=== PATIENT | male | born 1955 | race Caucasian/White ===

== ENCOUNTER 2017-10-01 10:29 | Emergency (ER) | payer BC ==
[2017-10-01] MEDS ORDERED: MORPHINE 4 MG/ML SYR ONE (10:54)
[2017-10-01] MEDS ORDERED: ONDANSETRON 4 MG/2 ML VIAL ONE (10:54)
[2017-10-01] MEDS ORDERED: MEPERIDINE HCL 25 MG/0.5 ML ONE (11:16)
[2017-10-01] MEDS ORDERED: PROMETHAZINE 25 MG/ML VIAL ONE (11:16)
[2017-10-01] MEDS ORDERED: KETOROLAC 30 MG/ML INJ ONE (11:16)
[2017-10-01 11:49] LABS: Absolute Monocytes 0.9 K/uL (0.1-1.3); Absolute Neutrophil 12.6 K/uL (1.8-8.0); Basophils % 0.2 % (0-1.3); Eosinophils % 0.3 % (0-4.4); Hematocrit 45.5 % (39.6-49.0); Lymphocytes % 6.7 % (15.3-44.8); MCH 29.9 pg (27.0-35.0); MPV 7.2 fL (7.6-11.3); Monocytes % 6.2 % (3.3-12.3); RBC Red Blood Cell Count 5.12 M/uL (4.33-5.43)
--- NOTE | 2017-10-01 12:13 | RAD REPORT ---
EXAM DESCRIPTION: CT - Stone Protocol - 10/01/2017 11:48 am CLINICAL HISTORY: Abdominal pain, left flank pain, lithotripsy several days earlier there COMPARISON: None. TECHNIQUE: Axial 5 mm thick images were obtained without oral or IV contrast. The jehey-hm-xlrj span s the entirety of the system partially obscuring uppermost abdomen and lung bases. All CT scans are performed using dose optimization technique as appropriate and may include automated exposure control or mA/KV adjustment according to patient size. FINDINGS: Ivzw-ek-fhyzgted left-sided hydronephrosis is present secondary to a 6 x 4 mm stone in the proximal left ureter. On a KUB projection, the stone is superimposed on the lateral margin of the L2 -3 disc space. No other ureteral calculi present. Ureter is normal size distal to this stone. Patient has numerous variably sized nonobstructing caliceal calculi present from 3 mm-9 mm in size. Mild iram ma and perinephric stranding of the left kidney noted. No right-sided hydronephrosis or obstructing c alculi. No nonobstructing calculi on the right. No bladder calculi. Prostate gland and seminal vesicl es are normal range. No urinary bladder suspicious finding. Isodense masses and pyelonephritis are no t excluded on stone protocol study. Liver, spleen and pancreas show no focal abnormalities. The liver demonstrates diffuse fatty infiltra tion. No gallbladder or biliary tree abnormality identified. No significant adrenal finding. Disc and bony degenerative changes are present. No acute bone process. No hernia, mass or bulky lymphadenopathy noted. No free air, free fluid or inflammatory stranding. IMPRESSION: Mild to moderate hydronephrosis secondary to a 6 x 4 mm stone in the proximal ureter. Dany rhodes has multiple 3-9 mm nonobstructing caliceal calculi on the left. The obstructing ureteral calculus, on KUB projection, superimposes on the left lateral margin of the L2-3 disc space. Diffuse fatty infiltration of the liver. Isodense masses and pyelonephritis are not excluded on stone protocol technique.
[2017-10-01] MEDS ORDERED: TAMSULOSIN 0.4 MG SR CAP ONE (12:15)
[2017-10-01] MEDS ORDERED: CEFTRIAXONE/SWI 1gm 1 GM/10 ML SYR ONE (12:16)
[2017-10-01 12:17] LABS: Albumin 4.3 g/dL (3.4-5.0); Bilirubin Direct 0.1 mg/dL (0-0.2); Bilirubin Total 0.6 mg/dL (0.2-1.0); Potassium 3.9 mmol/L (3.5-5.1)
[2017-10-01 12:55] LABS: Blood Morphology Comment NOT SEEN (NOT SEEN); Platelet Estimate ADEQ; Urine White Blood Cell Casts OK
--- NOTE | 2017-10-01 13:02 | ER ---
Nurse's Notes [facility] Name: Lobo Mayers Age: 62 yrs Sex: Male : 1955 Arrival Date: 10/01/2017 Time: 10:30 Bed 3 Private MD: Out, [facility] Diagnosis: Ureterolithiasis Presentation: 10/01 10:36 Presenting complaint: Patient states: Lithotripsy performed on Thursday, reports passing sg small stones with no problems but now im having a really bad pain on the left side flank area, Dr. Xochitl Murillo in [place] for my urology needs, reports nausea and vomiting denies fever. Transition of care: patient was not received from another setting of care. Onset of symptoms was October 01, 2017. Risk Assessment: Do you want to hurt yourself or someone else? Patient reports no desire to harm self or others. Initial Sepsis Screen: Does the patient meet any 2 criteria? No. Patient's initial sepsis screen is negative. Does the patient have a suspected source of infection? No. Patient's initial sepsis screen is negative. Care prior to arrival: None. 10:36 Method Of Arrival: Ambulatory sg 10:36 Acuity: [place] 3 sg Historical: - Allergies: 10:36 No Known Allergies; sg - Immunization history:: Adult Immunizations up to date. - Social history:: Smoking status: Patient/guardian denies using tobacco. - Ebola Screening: : Patient negative for fever greater than or equal to 101.5 degrees Fahrenheit, and additional compatible Ebola Virus Disease symptoms Patient denies exposure to infectious person Patient denies travel to an Ebola-affected area in the 21 days before illness onset No symptoms or risks identified at this time. Screenin:59 Abuse screen: Denies threats or abuse. Denies injuries from another. Nutritional sv screening: No deficits noted. Tuberculosis screening: No symptoms or risk factors identified. Fall Risk None identified. Assessment: 10:45 General: Appears distressed, uncomfortable, Behavior is cooperative, appropriate for sv age, restless. Pain: Complains of pain in left low back and left mid back Pain currently is 10 out of 10 on a pain scale. Pain began this morning Is continuous. Neuro: Level of Consciousness is awake, alert, obeys commands, Oriented to person, place, time, situation, Moves all extremities. Full function Gait is steady, Speech is normal. Respiratory: Respiratory effort is even, unlabored, Respiratory pattern is regular, symmetrical. GI: Abdomen is round. Derm: Skin is diaphoretic, Skin is normal. Musculoskeletal: No signs and/or symptoms reported regarding the musculoskeletal system. 11:10 Reassessment: No changes from previously documented assessment. Patient and/or family sv updated on plan of care and expected duration. Pain level reassessed. Patient is alert, oriented x 3, equal unlabored respirations, skin warm/dry/pink. 11:57 Reassessment: Patient appears in no apparent distress at this time. Patient and/or sv family updated on plan of care and expected duration. Pain level reassessed. Patient is alert, oriented x 3, equal unlabored respirations, skin warm/dry/pink. Pain: Complains of pain in left mid back and left low back Pain currently is 3 out of 10 on a pain scale. 13:42 Reassessment: Patient appears in no apparent distress at this time. Patient and/or sv family updated on plan of care and expected duration. Pain level reassessed. Patient is alert, oriented x 3, equal unlabored respirations, skin warm/dry/pink. Patient denies pain at this time. Patient states feeling better. Patient states symptoms have improved. Vital Signs: 10:38 Pulse 76; Resp 17; Temp 98.6; Pulse Ox 100% on R/A; Weight 113.4 kg; Pain 10/10; sg 10:46 BP 161 / 103; sv 11:10 Pain 8/10; sv 11:10 Pain 8/10; sv 11:31 Pain 4/10; sv 11:31 Pain 4/10; sv 11:43 Pulse 79; Resp 16; Pulse Ox 91% on R/A; sv 11:57 BP 152 / 73; Pulse 55; Resp 18; Pulse Ox 100% on 2 lpm NC; Pain 3/10; sv 13:43 BP 150 / 66; Pulse 58; Resp 18; Pulse Ox 99% ; sv 11:43 Pt placed on O2 \T\ 2L per NC. O2 sat up to 96% sv ED Course: 10:30 Patient arrived in ED. sb2 10:30 Out, [facility] is Private Physician. sb2 10:37 Triage completed. sg 10:43 Des Santiago PA is PHCP. jr8 10:43 Shakeel Harmon MD is Attending Physician. jr8 10:45 Inserted saline lock: 20 gauge in left antecubital area, using aseptic technique. sv ,using aseptic technique. done by Eduardo Tenorio RN. 10:47 Sunitha Castillo, SYO is Primary Nurse. sv 10:50 Patient has correct armband on for positive identification. Bed in low position. Adult sv w/ patient. NIBP on. 10:50 Initial lab(s) drawn, by me, sent to lab. sv 10:58 Arm band placed on right wrist. sv 11:[address] via wheelchair. vr 11:27 Note: patient not ready at this time, in pain. vr 11:[address] via stretcher. sv 11:48 CT Stone Protocol In Process Unspecified. EDMS 11:[address] Patient moved back from [address]. sv 13:43 No provider procedures requiring assistance completed. IV discontinued, intact, sv bleeding controlled, No redness/swelling at site. Pressure dressing applied. Administered Medications: 10:55 Drug: Zofran 4 mg Route: IVP; Site: left antecubital; sv 11:10 Follow up: Pain 8/10 Adult; Response: No adverse reaction sv 10:57 Drug: morphine 4 mg Route: IVP; Site: left antecubital; sv 11:10 Follow up: Pain 8/10 Adult; Response: No adverse reaction sv 11:15 Drug: Phenergan 12.5 mg Route: IVP; Site: left antecubital; sv 11:31 Follow up: Response: No adverse reaction; Marked relief of symptoms; Nausea is decreasedsv 11:17 Drug: Demerol 25 mg Route: IVP; Site: left antecubital; sv 11:31 Follow up: Pain 4/10 Adult; Response: No adverse reaction sv 11:19 Drug: TORadol 30 mg Route: IVP; Site: left antecubital; sv 11:31 Follow up: Pain 4/10 Adult; Response: No adverse reaction; Marked relief of symptoms sv 12:20 Drug: Flomax 0.4 mg Route: PO; sv 13:42 Follow up: Response: No adverse reaction sv 12:20 Drug: Rocephin 1 grams Route: IV; Rate: calculated rate; Site: left antecubital; sv Outcome: 13:02 Discharge ordered by . jr8 13:43 Discharged to home ambulatory, with family. sv 13:43 Condition: stable 13:43 Discharge instructions given to patient, Instructed on discharge instructions, follow up and referral plans. no drinking with medication, no driving heavy equipment, medication usage, Demonstrated understanding of instructions, follow-up care, medications, Prescriptions given X 4. 13:44 Patient left the ED. sv Signatures: Dispatcher [employer] EDSunitha Bishop RN RN sv Gay, Steven, RN RN sg Davis, Victoria vr Roszak, Josh, PA PA 8 Jacqui Rodas sb2
--- NOTE | 2017-10-01 13:02 | EDPHYS ---
Physician Documentation [facility] Name: Lobo Mayers Age: 62 yrs Sex: Male : 1955 Arrival Date: 10/01/2017 Time: 10:30 Bed 3 Private MD: Out, [facility] ED Physician Shakeel Harmon HPI: 10/01 11:05 This 62 yrs old Male presents to ER via Ambulatory with complaints of jr8 Possible Kidney Stone. 11:05 The patient complains of pain in the left flank. The pain does not radiate. Onset: The jr8 symptoms/episode began/occurred acutely, today. Modifying factors: The symptoms are alleviated by nothing. the symptoms are aggravated by nothing. Associated signs and symptoms: Pertinent positives: nausea, vomiting. Severity of pain: At its worst the pain was moderate in the emergency department the pain is unchanged. The patient has experienced similar episodes in the past, a few times. The patient has been recently seen by a physician:. Patient stated that he had lithotripsy this past Thursday for renal stone. Stated that he had felt well until today. Started to have severe left sided pain and n/v . Historical: - Allergies: 10:36 No Known Allergies; sg - Immunization history:: Adult Immunizations up to date. - Social history:: Smoking status: Patient/guardian denies using tobacco. - Ebola Screening: : Patient negative for fever greater than or equal to 101.5 degrees Fahrenheit, and additional compatible Ebola Virus Disease symptoms Patient denies exposure to infectious person Patient denies travel to an Ebola-affected area in the 21 days before illness onset No symptoms or risks identified at this time. ROS: 11:05 Eyes: Negative for injury, pain, redness, and discharge, ENT: Negative for injury, jr8 pain, and discharge, Neck: Negative for injury, pain, and swelling, Cardiovascular: Negative for chest pain, palpitations, and edema, Respiratory: Negative for shortness of breath, cough, wheezing, and pleuritic chest pain, MS/Extremity: Negative for injury and deformity, Skin: Negative for injury, rash, and discoloration, Neuro: Negative for headache, weakness, numbness, tingling, and seizure. 11:05 Abdomen/GI: Positive for nausea and vomiting, Negative for abdominal pain, diarrhea, constipation, abdominal cramps, abdominal distension, anorexia, dysphagia, hematemesis, black/tarry stool, rectal pain, rectal bleeding, bowel incontinence, flatulence. 11:05 Back: Positive for flank pain, on the left. Exam: 11:05 Eyes: Pupils equal round and reactive to light, extra-ocular motions intact. Lids and jr8 lashes normal. Conjunctiva and sclera are non-icteric and not injected. Cornea within normal limits. Periorbital areas with no swelling, redness, or edema. ENT: Nares patent. No nasal discharge, no septal abnormalities noted. Tympanic membranes are normal and external auditory canals are clear. Oropharynx with no redness, swelling, or masses, exudates, or evidence of obstruction, uvula midline. Mucous membranes moist. Neck: Trachea midline, no thyromegaly or masses palpated, and no cervical lymphadenopathy. Supple, full range of motion without nuchal rigidity, or vertebral point tenderness. No Meningismus. Cardiovascular: Regular rate and rhythm with a normal S1 and S2. No gallops, murmurs, or rubs. Normal PMI, no JVD. No pulse deficits. Respiratory: Lungs have equal breath sounds bilaterally, clear to auscultation and percussion. No rales, rhonchi or wheezes noted. No increased work of breathing, no retractions or nasal flaring. Abdomen/GI: Soft, non-tender, with normal bowel sounds. No distension or tympany. No guarding or rebound. No evidence of tenderness throughout. Back: No spinal tenderness. No costovertebral tenderness. Full range of motion. Skin: Warm, dry with normal turgor. Normal color with no rashes, no lesions, and no evidence of cellulitis. MS/ Extremity: Pulses equal, no cyanosis. Neurovascular intact. Full, normal range of motion. Neuro: Awake and alert, GCS 15, oriented to person, place, time, and situation. Cranial nerves II-XII grossly intact. Motor strength 5/5 in all extremities. Sensory grossly intact. Cerebellar exam normal. Normal gait. Vital Signs: 10:38 Pulse 76; Resp 17; Temp 98.6; Pulse Ox 100% on R/A; Weight 113.4 kg; Pain 10/10; sg 10:46 BP 161 / 103; sv 11:10 Pain 8/10; sv 11:10 Pain 8/10; sv 11:31 Pain 4/10; sv 11:31 Pain 4/10; sv 11:43 Pulse 79; Resp 16; Pulse Ox 91% on R/A; sv 11:57 BP 152 / 73; Pulse 55; Resp 18; Pulse Ox 100% on 2 lpm NC; Pain 3/10; sv 13:43 BP 150 / 66; Pulse 58; Resp 18; Pulse Ox 99% ; sv 11:43 Pt placed on O2 \T\ 2L per NC. O2 sat up to 96% sv MDM: 10:44 Patient medically screened. jr8 12:56 Data reviewed: vital signs, nurses notes, lab test result(s), radiologic studies, CT jr8 scan, and as a result, I will discharge patient. Data interpreted: Pulse oximetry: on room air is 100 %. Interpretation: normal. Counseling: I had a detailed discussion with the patient and/or guardian regarding: the historical points, exam findings, and any diagnostic results supporting the discharge/admit diagnosis, lab results, radiology results, the need for outpatient follow up, a urologist, to return to the emergency department if symptoms worsen or persist or if there are any questions or concerns that arise at home. ED course: Patient still with minimal to no pain after being here for over 2 hours. Was able to urinate. Tolerates PO fluids. Will try out patient therapy for renal stone. If he were to worsen to come back for transfer to his urologist . 10/01 10:52 Order name: Basic Metabolic Panel; Complete Time: 12:20 [facility] 10/01 10:52 Order name: CBC with Diff; Complete Time: 12:58 [facility] 10/01 10:52 Order name: Creatinine for Radiology; Complete Time: 12: 8 10/01 10:52 Order name: Hepatic Function; Complete Time: 12:20 8 10/01 10:52 Order name: Lipase; Complete Time: 12:20 [facility] 10/01 11:53 Order name: CBC Smear Scan; Complete Time: 12:58 [facility] 10/01 11:02 Order name: CT Stone Protocol; Complete Time: 12:16 10/01 10:52 Order name: IV Saline Lock; Complete Time: 10:57 8 10/01 10:52 Order name: Labs collected and sent; Complete Time: 10:58 [facility] 10/01 10:52 Order name: Urine Dipstick-Ancillary (obtain specimen); Complete Time: 13:42 jr8 Administered Medications: 10:55 Drug: Zofran 4 mg Route: IVP; Site: left antecubital; sv 11:10 Follow up: Pain 8/10 Adult; Response: No adverse reaction sv 10:57 Drug: morphine 4 mg Route: IVP; Site: left antecubital; sv 11:10 Follow up: Pain 8/10 Adult; Response: No adverse reaction sv 11:15 Drug: Phenergan 12.5 mg Route: IVP; Site: left antecubital; sv 11:31 Follow up: Response: No adverse reaction; Marked relief of symptoms; Nausea is decreasedsv 11:17 Drug: Demerol 25 mg Route: IVP; Site: left antecubital; sv 11:31 Follow up: Pain 4/10 Adult; Response: No adverse reaction sv 11:19 Drug: TORadol 30 mg Route: IVP; Site: left antecubital; sv 11:31 Follow up: Pain 4/10 Adult; Response: No adverse reaction; Marked relief of symptoms sv 12:20 Drug: Flomax 0.4 mg Route: PO; sv 13:42 Follow up: Response: No adverse reaction sv 12:20 Drug: Rocephin 1 grams Route: IV; Rate: calculated rate; Site: left antecubital; sv Disposition: 15:05 Co-signature as Attending Physician, Shakeel Harmon MD. rn Disposition: 10/01/17 13:02 Discharged to Home. Impression: Ureterolithiasis . - Condition is Stable. - Discharge Instructions: Kidney Stones. - Prescriptions for ondansetron 4 mg Oral tablet,disintegrating - take 1 tablet by ORAL route every 8 hours As needed; 12 tablet. Tylenol- Codeine #3 300-30 mg Oral Tablet - take 2 tablet by ORAL route every 6 hours As needed; 30 tablet. Flomax 0.4 mg Oral Capsule, Sust. Release 24 hr - take 1 capsule by ORAL route once daily 1/2 hour following the same meal each day; 30 capsule. Cipro 500 mg Oral Tablet - take 1 tablet by ORAL route every 12 hours for 10 days; 20 tablet. - Medication Reconciliation Form, Thank You Letter, Antibiotic Education, Prescription Opioid Use form. - Follow up: Private Physician; When: 2 - 3 days; Reason: Recheck today's complaints, Continuance of care, Re-evaluation by your physician. - Problem is new. - Symptoms have improved. Signatures: Dispatcher [employer] EDSunitha Bishop RN RN sv Gay, Steven, RN RN sg Nieto, Roman, MD MD rn Roszak, Josh, PA PA jr8 Corrections: (The following items were deleted from the chart) 13:44 13:02 10/01/2017 13:02 Discharged to Home. Impression: Ureterolithiasis . Condition is sv Stable. Forms are Medication Reconciliation Form, Thank You Letter, Antibiotic Education, Prescription Opioid Use. Follow up: Private Physician; When: 2 - 3 days; Reason: Recheck today's complaints, Continuance of care, Re-evaluation by your physician. Problem is new. Symptoms have improved. jr8
== END 2017-10-01 13:44 | disposition home or self-care (01) ==
LOC: ER 10:29
DX: N20.1 Calculus of ureter (principal)
CPT/HCPCS: 36415; 74176; 76377; 80048; 80076; 83690; 85025; 96374; 96375; 99284; J0696; J2175; J2405; J2550

== ENCOUNTER 2019-11-16 10:20 | Emergency (ER) | payer BC, OTHER ==
--- OUTSIDE RECORDS SUMMARY | 2019-11-16 10:23 | XMS REPORT | Continuity of Care Document ---
:1955 Author Organization [facility] Address [address] [place] [address] [address] [place] [address] Care Team Providers Name Role Phone Asked, Pcp Primary Care Physician Unavailable [place] MD. Attending Clinician Destinee Puente MA Attending Clinician Unavailable Payers Payer Name Policy Type Policy Number Effective Date Expiration Date S aprilce AETNAAETNA PPO xxxxxxxxxx 2019 [place] OPEN 00:00:00 Yarsani CHOICExxxxxxxxxx 2019-Present PPO Problems This patient has no known problems. Allergies, Adverse Reactions, Alerts This patient has no known allergies or adverse reactions. Family History Family Member Diagnosis Comments Start Date Stop Date Source Natural father Pancreatic cancer Elizabeth baptiste Yarsani Social History Social Habit Start Date Stop Date Quantity Comments Source Sex Assigned At [facility] ethodist Exposure to Not sure [place] [facility] dist SARS-CoV-2 (event) Alcohol intake 2019-11-15 2019-11-15 Current drinker [place] Yarsani 00:00:00 00:00:00 of alcohol (finding) Alcohol Comment 2019-11-14 2019-11-14 rare [facility] ethodist 00:00:00 00:00:00 Smoking Status Start Date Stop Date Source Never smoker [place] Method[facility] t Medications Ordered Filled Start Stop Current Ordering Indication Dosage Frequency Signature Comments Components Source Medication Medication Date Date Medication? Clinician (SIG) Name Name aspirin 325 2020-0 Yes Q24H daily. [place] tablet 8-17 [facility] 10:47: st 43 citalopram 2020-0 Yes Q24H daily. [place] (CeleXA) 20 8-17 [facility] MG tablet 10:47: st 43 ezetimibe 2020-0 Yes ezetimibe Elizabeth ston (ZETIA) 10 8-17 10 mg [facility] mg tablet 10:47: tablet st 43 sodium,pota 2020- No Pre-op 1{bottl Take 1 [place] ssium,mag 8-10-30 testing e} Bottle by M ethodi sulfates 00:00: 23:[address] (Suprep 00 :00 for 1 Bowel Prep dose. Kit) 17.5-3.13-1 .6 gram recon soln sodium,pota 2020- No 1{bottl Take 1 [place] ssium,mag 8- 08-03 e} Bottle by Meth bethanie sulfates 00:00: 23:[address] (Suprep 00 :00 for 1 Bowel Prep dose. Kit) 17.5-3.13-1 .6 gram recon soln rosuvastati Yes TK 1 T PO [place] (CRESTOR) 7-07 QHS UTD Metho di 5 mg tablet 00:00: st 00 Procedures Procedure Date / Time Performed Performing Clinician [facility] e SURGICAL PATHOLOGY 2019-11-14 12:17:00 Nicholas Pond REQUEST COVID-19 QUALITATIVE PCR 2019-11-09 13:47:00 Nicholas Pond Plan of Care Planned Activity Planned Date Details Comments Source Future Scheduled 2019-11-29 INFLUENZA VACCINE [place] [facility] Test 00:00:00 [code = INFLUENZA VACCINE] Future Scheduled 2006 COLONOSCOPY SCREENING Gary berrios Yarsani Test 00:00:00 [code = COLONOSCOPY SCREENING] Future Scheduled 2006 SHINGLES VACCINES [place] Yarsani Test 00:00:00 (#1) [code = SHINGLES VACCINES (#1)] Encounters Start End Encounter Admission Attending Care Care Encounter Source Date/Time Date/Time Type Type Clinicians Facility Department ID 2019-11-14 2019-11-14 [facility] [id number] [address] [place] 00:00:00 00:00:00 NICHOLAS [address] 2019-11-09 2019-11-09 Out[facility] [id number] [address] [place] 00:00:00 00:00:00 NICHOLAS [address] Results Test Description Test Time Test Comments Results Result Comments Source Surgical pathology request 2019-11-15 09:08:26 Test Item Value Reference Range Interpretation Comme nts Case number (test code = [id number]) [id number] Surgical pathology report (test code = See link below for PDF Lab R eport 2252) Result status (test code = 9377874) This is Final Report for [id number] Jesnen TineoCOVID-19 qualitative [id number] 22:32:13 Test Item Value Reference Range Interpretation Comments Interpretation (test Negative results do code = 1703285) not preclude 2019-nCoV infection and should not be used as the sole basis for treatment or other patient management decisions. Negative results must be combined with clinical observations, patient history, and epidemiological information. COVID-19 qualitative Not-Detected Not-Detected PCR result (test code = 76263-8) COVID-19 qualitative See link below for C ase Number: PCR (test code = PDF Lab Report [id number]) Jensen Tineo
--- OUTSIDE RECORDS SUMMARY | 2019-11-16 10:23 | XMS REPORT | Clinical Summary ---
:1955 Author Organization [facility] Address [address] [place] [id number] Care Team Providers Name Role Phone Asked, No Pcp Primary Care Provider Unavailable Allergies No Known Allergies Medications Medication Sig Dispensed Refills Start Date End Date Status aspirin 325 MG daily. 0 Activ e tablet citalopram (CeleXA) daily. 0 Active 20 MG tablet ezetimibe (ZETIA) 10 ezetimibe 10 mg 0 Active mg tablet tablet rosuvastatin TK 1 T PO QHS UTD 0 10/04/2019 Active (CRESTOR) 5 mg tablet sodium,potassium,mag Take 1 Bottle by 1 Bottle 0 10/31/2019 0 10/31/2019 sulfates (Suprep mouth once for 1 Bowel Prep Kit) dose. 17.5-3.13-1.6 gram recon solnIndications: Pre-op testing sodium,potassium,mag Take 1 Bottle by 1 Bottle 0 10/31/2019 0 10/31/2019 sulfates (Suprep mouth once for 1 Bowel Prep Kit) dose. 17.5-3.13-1.6 gram recon soln Active Problems Not on file Encounters Date Type Specialty Care Team Description 11/15/2019 Telephone Gastroenterology Nicholas Pond MD 11/14/2019 Lab Lab Nicholas Pond Arrived MD 11/14/2019 Documentation Gastroenterology Nicholas Pond, Colon oscopy 11/11/2019 Telephone GastroenterAlicia Oconnell MA 11/10/2019 Telephone GastroenterNicholas Francisco MD 11/09/2019 Lab Lab Nicholas Pond, Pre-op poly ting 11/09/2019 Travel 10/31/2019 Orders Only Gastroenterology Alicia Puente MA Pre- op testing (Primary Dx) 10/31/2019 Telephone Gastroenterology Alicia Puente MA 10/31/2019 Orders Only Gastroenterology Alicia Puente MA Pre- op testing (Primary Dx) 10/05/2019 Telephone Gastroenterology Nicholas Pond MD after 11/15/2018 Family History Medical History Relation Name Comments Pancreatic cancer Father Relation Name Status Comments Father Social History Tobacco Use Types Packs/Day Years Used Date Never Smoker Smokeless Tobacco: Never Used Alcohol Use Drinks/Week oz/Week Comments Yes rare Sex Assigned at Date Recorded Not on file Job Start Date Occupation Industry Not on file Not on file Not on file Travel History Travel Start Travel End No recent travel history available. COVID-19 Exposure Response Date Recorded In the last month, have you been in contact with No / Unsure 11/09/2019 1:31 PM CDT someone who was confirmed or suspected to have Coronavirus / COVID-19? Last Filed Vital Signs Not on file Plan of Treatment Health Maintenance Due Date Last Done Comments COLONOSCOPY SCREENING 2006 SHINGLES VACCINES (#1) 2006 INFLUENZA VACCINE 11/29/2019 Procedures Procedure Name Priority Date/Time Associated Comments Diagnosis SURGICAL PATHOLOGY Routine 11/14/2019 12:17 Resul ts for this REQUEST PM CDT procedure are i n the results section. COVID-19 QUALITATIVE Routine 11/09/2019 1:47 Pre-op testing R esults for this PCR PM CDT procedure are i n the results section. after 11/15/2018 Results Surgical pathology request (11/14/2019 12:17 PM CDT) [facility] DEPARTMENT OF PATHOLOGY AND GENOMIC MEDICINE Surgical pathology See link below [facility] DEPARTMENT OF report for PDF Lab PATHOLOGY AND Report GENOMIC MEDICINE Result status This is Final [facility] DEPARTMENT OF Report for PATHOLOGY AND [id number] GENOMIC MEDICINE Specimen Performing Organization Address City/State/Zipcode Phone Number [facility] DEPARTMENT OF PATHOLOGY AND [address] [place], [place] [address] GENOMIC MEDICINE COVID-19 qualitative PCR (11/09/2019 1:47 PM CDT) Interpretation Negative results do not prec lude 2019-nCoV infection and should not be used as the sole basis for treatment or other patient management decisions. Negative results must be combined with clinical observations, patient history, and epidemiological QUIÑONEZ information. [facility] COVID-19 qualitative Not-Detected Not-Detecte [place] PCR result d [facility] COVID-19 qualitative See link below for [place] PCR PDF Lab [facility] ReportComment: Case HOSPITAL Number: [id number] Specimen Nasopharyngeal swab Performing Organization Address City/State/Zipcode Phone Number [facility] DEPARTMENT OF PATHOLOGY AND [address] [place], [place] [address] GENOMIC MEDICINE [facility] [address] [place] [address] [facility] after 11/15/2018 Advance Directives For more information, please contact: [phone] Type Date Recorded 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
[2019-11-16 11:13] LABS: Absolute Lymphocytes (CBC) 1.3 K/uL (0.7-4.9); Basophils % 0.4 % (0-1.3); Hematocrit 44.7 % (39.6-49.0); Lymphocytes % 12.8 % (15.3-44.8); MPV 6.7 fL (7.6-11.3); RBC Red Blood Cell Count 5.08 M/uL (4.33-5.43)
[2019-11-16] MEDS ORDERED: ONDANSETRON 4 MG/2 ML VIAL ONE ×2 (11:16→11:42)
[2019-11-16] MEDS ORDERED: MORPHINE 4 MG/ML SYR ONE (11:16)
[2019-11-16] MEDS ORDERED: NA CHLORIDE 0.9% 1,000 ML ONE (11:16)
[2019-11-16 11:22] LABS: Potassium 3.8 mmol/L (3.5-5.1)
[2019-11-16] MEDS ORDERED: KETOROLAC 30 MG/ML INJ ONE (11:39)
--- NOTE | 2019-11-16 12:35 | RAD REPORT ---
EXAM DESCRIPTION: CT - Stone Protocol - 11/16/2019 12:01 pm CLINICAL HISTORY: FLANK PAIN COMPARISON: Stone Protocol dated 10/01/2017 TECHNIQUE: Axial 5 mm thick images were obtained without oral or IV contrast. The [id number] span s the entirety of the system including uppermost abdomen and lung bases. All CT scans are performed using dose optimization technique as appropriate and may include automated exposure control or mA/KV adjustment according to patient size. FINDINGS: [id number] left-sided hydronephrosis present. The patient has a cluster of 3 calcifi cations near the pelvic inlet measuring 2 mm, 3 mm and 6 mm in size. On a KUB projection the calcific ations would be just inferior to the left sacral ala. Distal to the stones the ureter is decompressed . No bladder calculi present. Patient has multiple 5-7 mm nonobstructing calculi in the left kidney. No right-sided significant finding. Left-sided perinephric stranding is present. No suspicious renal masses. Isodense masses and pyelonephritis are not excluded on a stone protocol CT scan. No significa nt adrenal finding. No urinary bladder suspicious finding. Liver is fatty infiltrated. No focal liver lesion. Spleen and pancreas show no suspicious findings. N o gallbladder or biliary tree abnormality. No suspicious bowel findings. No hernia, mass or bulky lymphadenopathy noted. No free air, free fluid or inflammatory stranding. No significant bony abnormality. IMPRESSION: Okgz-co-[id number] left-sided hydronephrosis secondary to a cluster of 3 calcifications at the left pelvic inlet ranging 2-6 mm in size. When viewed from a KUB projection, the obstructing calculi should be just inferior to the left sacral ala. Additional nonobstructing left renal calculi. Fatty infiltration of the liver. Isodense masses and pyelonephritis are not excluded on stone protocol technique.
[2019-11-16 13:10] LABS: Urine Blood 2+ (NEG); Urine Glucose NEGATIVE (NEG); Urine Protein NEGATIVE (NEG); Urine pH 5.5 (5.0-7.0)
--- NOTE | 2019-11-16 13:19 | ER ---
Nurse's Notes [facility] Name: Lobo Mayers Age: 64 yrs Sex: Male : 1955 Arrival Date: 11/16/2019 Time: 10:22 Bed 6 Private MD: Diagnosis: Calculus of kidney and ureter Presentation: 11/15 10:36 Chief complaint: Patient states: left lower back and left groin started about 9 am, iw feels like a kidney stones, +hx of kid stones. Coronavirus screen: At this time, the client does not indicate any symptoms associated with coronavirus-19. Ebola Screen: Patient negative for fever greater than or equal to 101.5 degrees Fahrenheit, and additional compatible Ebola Virus Disease symptoms Patient denies exposure to infectious person. Patient denies travel to an Ebola-affected area in the 21 days before illness onset. No symptoms or risks identified at this time. Initial Sepsis Screen: Does the patient meet any 2 criteria? No. Patient's initial sepsis screen is negative. Does the patient have a suspected source of infection? No. Patient's initial sepsis screen is negative. Risk Assessment: Do you want to hurt yourself or someone else? Patient reports no desire to harm self or others. Onset of symptoms was November 16, 2019. 10:36 Method Of Arrival: Ambulatory iw 10:36 Acuity: [place] 3 iw Historical: - Allergies: 10:38 No Known Allergies; iw - Home Meds: 10:38 Crestor oral oral [Active]; citalopram oral [Active]; Zetia 10 mg Oral tab 1 tab once iw daily [Active]; hyoscyamine sulfate 0.125 mg SL subl [Active]; - PMHx: 10:38 Hyperlipidemia; Anxiety; iw - PSHx: 10:38 None; iw - Immunization history:: Adult Immunizations up to date. - Social history:: Smoking status: Patient denies any tobacco usage or history of. Screenin:00 Abuse screen: Denies threats or abuse. Denies injuries from another. Nutritional sv screening: No deficits noted. Tuberculosis screening: No symptoms or risk factors identified. Fall Risk None identified. Assessment: 10:45 General: Appears in no apparent distress. uncomfortable, Behavior is calm, cooperative. hb Pain: Pain currently is 10 out of 10 on a pain scale. Neuro: Level of Consciousness is awake, alert, obeys commands, Oriented to person, place, time, situation. Cardiovascular: Capillary refill < 3 seconds Patient's skin is warm and dry. Respiratory: Respiratory effort is even, unlabored, Respiratory pattern is regular, symmetrical. GI: Reports nausea. : Reports pain in lower back with urination, pain that radiates from low back to groin. EENT: No signs and/or symptoms were reported regarding the EENT system. Derm: Skin is pink, warm \T\ dry. Musculoskeletal: No signs and/or symptoms reported regarding the musculoskeletal system. 11:00 Reassessment: Patient appears in no apparent distress at this time. No changes from sv previously documented assessment. Patient and/or family updated on plan of care and expected duration. Pain level reassessed. Patient is alert, oriented x 3, equal unlabored respirations, skin warm/dry/pink. 11:15 Reassessment: Pt does not want to go to CT at this time because of the pain. sv 13:31 Reassessment: Bee [id number]. hb 14:00 Reassessment: Pt is alert and sitting in chair next to bed. NAD. Denies pain. VS WNL. hb Discharge pending completion of IV infusion. Vital Signs: 10:36 BP 184 / 78; Pulse 67; Resp 16; Temp 98.5; Pulse Ox 99% on R/A; Weight 108.86 kg; iw Height 5 ft. 10 in. (177.80 cm); Pain 10/10; 12:13 BP 146 / 71; Pulse 53; Resp 18; Pulse Ox 100% ; sv 10:36 Body Mass Index 34.44 (108.86 kg, 177.80 cm) iw ED Course: 10:22 Patient arrived in ED. rg4 10:37 Triage completed. iw 10:37 [facility]ad [facility] kb 10:37 Faizan Olvera MD is Attending Physician. kb 10:40 Arm band placed on. hb 10:56 Sunitha Castillo RN is Primary Nurse. sv 11:00 Inserted saline lock: 20 gauge in left antecubital area, using aseptic technique. Blood sv collected. Flushed left antecubital with 5 ml normal saline. 11:00 Patient has correct armband on for positive identification. Bed in low position. Call sv light in reach. Pulse ox on. NIBP on. 12:01 CT Stone Protocol In Process Unspecified. EDMS 14:51 No provider procedures requiring assistance completed. IV discontinued, intact, hb bleeding controlled, No redness/swelling at site. Administered Medications: 11:07 Drug: Zofran (Ondansetron) 4 mg Route: IVP; Site: left antecubital; sv 11:34 Follow up: Response: No adverse reaction; No change in condition sv 11:09 Drug: morphine 4 mg {Note: rass2.} Route: IVP; Site: left antecubital; sv 11:34 Follow up: Response: No adverse reaction; No change in condition; Pain is unchanged, sv physician notified; RASS: Agitated (+2) 11:15 Drug: NS 0.9% 1000 ml Route: IV; Rate: 1000 ml; Site: left antecubital; sv 12:00 Follow up: Response: No adverse reaction; IV Status: Completed infusion; IV Intake: sv 1000ml 11:29 Drug: TORadol 30 mg Route: IVP; Site: left antecubital; sv 12:24 Follow up: Response: No adverse reaction sv 11:34 Drug: Zofran (Ondansetron) 4 mg Route: IVP; Site: left antecubital; sv 12:24 Follow up: Response: No adverse reaction sv 13:29 Drug: Flomax 0.4 mg Route: PO; hb 14:00 Follow up: Response: No adverse reaction sv 13:29 Drug: Magnesium Sulfate 1 grams Route: IVPB; Infused Over: 1 hrs; Site: left hb antecubital; 14:30 Follow up: Response: No adverse reaction; IV Status: Completed infusion; IV Intake: sv 100ml 14:40 Drug: fentaNYL (PF) 50 mcg Route: IVP; Site: left antecubital; hb 14:51 Follow up: Response: Medication administered at discharge. hb Intake: 12:00 IV: 1000ml; Total: 1000ml. sv 14:30 IV: 100ml; Total: 1100ml. sv Output: 11:30 Urine: 1700ml (Voided); Total: 1700ml. sv Outcome: 13:18 Discharge ordered by MD. holt 14:51 Discharged to home ambulatory. hb 14:51 Condition: stable 14:51 Discharge instructions given to patient, Instructed on discharge instructions, follow up and referral plans. medication usage, Demonstrated understanding of instructions, follow-up care, medications, Prescriptions given X 4. 14:52 Patient left the ED. hb Signatures: Dispatcher [employer] EDMS Libertad Whitaker, NCA CERTIFIED CONCIERGE-C NCA CERTIFIED CONCIERGE-Sunitha Torres, RN Lora Rico RN RN iw Jaclyn Davis RN RN hb Garcia, Rubi rg4 Corrections: (The following items were deleted from the chart) 10:39 10:36 Pulse 67bpm; Resp 16bpm; Pulse Ox 99% RA; Temp 98.5F; 108.86 kg; Height 5 ft. 10 iw in.; BMI: 34.4; Pain 01/06; iw 14:52 14:51 Discharge instructions given to patient, Instructed on discharge instructions, hb follow up and referral plans. medication usage, Demonstrated understanding of instructions, follow-up care, medications, Prescriptions given X 3, hb
--- NOTE | 2019-11-16 13:19 | EDPHYS ---
Physician Documentation [facility] Name: Lobo Mayers Age: 64 yrs Sex: Male : 1955 Arrival Date: 11/16/2019 Time: 10:22 Bed 6 Private MD: ED Physician Faizan Olvera HPI: 11/15 11:09 This 64 yrs old Male presents to ER via Ambulatory with complaints of kb Possible Kidney Stone. 11:09 The patient complains of pain in the left flank. The pain radiates to the left lower kb quadrant. Onset: The symptoms/episode began/occurred this morning, at 08:00. Modifying factors: The symptoms are alleviated by nothing. the symptoms are aggravated by nothing. Associated signs and symptoms: The patient has no apparent associated signs or symptoms. Severity of pain: At its worst the pain was moderate severe in the emergency department the pain is unchanged. The patient has experienced similar episodes in the past, several times. The patient has not recently seen a physician. Historical: - Allergies: 10:38 No Known Allergies; iw - Home Meds: 10:38 Crestor oral oral [Active]; citalopram oral [Active]; Zetia 10 mg Oral tab 1 tab once iw daily [Active]; hyoscyamine sulfate 0.125 mg SL subl [Active]; - PMHx: 10:38 Hyperlipidemia; Anxiety; iw - PSHx: 10:38 None; iw - Immunization history:: Adult Immunizations up to date. - Social history:: Smoking status: Patient denies any tobacco usage or history of. ROS: 11:06 Constitutional: Negative for fever, chills, and weight loss, Cardiovascular: Negative kb for chest pain, palpitations, and edema, Respiratory: Negative for shortness of breath, cough, wheezing, and pleuritic chest pain, Abdomen/GI: Negative for abdominal pain, nausea, vomiting, diarrhea, and constipation, MS/Extremity: Negative for injury and deformity, Skin: Negative for injury, rash, and discoloration, Neuro: Negative for headache, weakness, numbness, tingling, and seizure. 11:06 Back: Positive for flank pain, on the left. Exam: 11:06 Constitutional: This is a well developed, well nourished patient who is awake, alert, kb and in no acute distress. Head/Face: Normocephalic, atraumatic. Chest/axilla: Normal chest wall appearance and motion. Nontender with no deformity. No lesions are appreciated. Cardiovascular: Regular rate and rhythm with a normal S1 and S2. No gallops, murmurs, or rubs. Normal PMI, no JVD. No pulse deficits. Respiratory: Lungs have equal breath sounds bilaterally, clear to auscultation and percussion. No rales, rhonchi or wheezes noted. No increased work of breathing, no retractions or nasal flaring. Skin: Warm, dry with normal turgor. Normal color with no rashes, no lesions, and no evidence of cellulitis. MS/ Extremity: Pulses equal, no cyanosis. Neurovascular intact. Full, normal range of motion. Neuro: Awake and alert, GCS 15, oriented to person, place, time, and situation. Cranial nerves II-XII grossly intact. Motor strength 5/5 in all extremities. Sensory grossly intact. Cerebellar exam normal. Normal gait. 11:06 Abdomen/GI: Inspection: abdomen appears normal, Bowel sounds: normal, in all quadrants, Palpation: soft, in all quadrants, moderate abdominal tenderness, in the left lower quadrant. 11:06 Back: CVA tenderness, that is mild, is noted on the left. Vital Signs: 10:36 BP 184 / 78; Pulse 67; Resp 16; Temp 98.5; Pulse Ox 99% on R/A; Weight 108.86 kg; iw Height 5 ft. 10 in. (177.80 cm); Pain 10/10; 12:13 BP 146 / 71; Pulse 53; Resp 18; Pulse Ox 100% ; sv 10:36 Body Mass Index 34.44 (108.86 kg, 177.80 cm) iw MDM: 10:39 Patient medically screened. kb 11:05 Data reviewed: vital signs, nurses notes. Data interpreted: Pulse oximetry: on room air kb is 99 %. Interpretation: normal. 12:50 Counseling: I had a detailed discussion with the patient and/or guardian regarding: the kb historical points, exam findings, and any diagnostic results supporting the discharge/admit diagnosis, lab results, radiology results, the need for outpatient follow up, a urologist, to return to the emergency department if symptoms worsen or persist or if there are any questions or concerns that arise at home. ED course: Pt reports he is pain free since the toradol. Educated on diagnostic findings. Pt will follow up outpatient with urologist.. 11/15 10:48 Order name: Basic Metabolic Panel; Complete Time: 11:27 kb 11/15 10:48 Order name: CBC with Diff; Complete Time: 11:16 kb 11/15 10:37 Order name: CT Stone Protocol; Complete Time: 12:36 kb 11/15 11:01 Order name: Urine Dipstick--Ancillary (enter results); Complete Time: 13:17 kb 11/15 10:37 Order name: Urine Dipstick-Ancillary (obtain specimen); Complete Time: 11:00 kb 11/15 10:48 Order name: IV Saline Lock; Complete Time: 11:10 kb 11/15 10:48 Order name: Labs collected and sent; Complete Time: 11:10 kb Administered Medications: 11:07 Drug: Zofran (Ondansetron) 4 mg Route: IVP; Site: left antecubital; sv 11:34 Follow up: Response: No adverse reaction; No change in condition sv 11:09 Drug: morphine 4 mg {Note: rass2.} Route: IVP; Site: left antecubital; sv 11:34 Follow up: Response: No adverse reaction; No change in condition; Pain is unchanged, sv physician notified; RASS: Agitated (+2) 11:15 Drug: NS 0.9% 1000 ml Route: IV; Rate: 1000 ml; Site: left antecubital; sv 12:00 Follow up: Response: No adverse reaction; IV Status: Completed infusion; IV Intake: sv 1000ml 11:29 Drug: TORadol 30 mg Route: IVP; Site: left antecubital; sv 12:24 Follow up: Response: No adverse reaction sv 11:34 Drug: Zofran (Ondansetron) 4 mg Route: IVP; Site: left antecubital; sv 12:24 Follow up: Response: No adverse reaction sv 13:29 Drug: Flomax 0.4 mg Route: PO; hb 14:00 Follow up: Response: No adverse reaction sv 13:29 Drug: Magnesium Sulfate 1 grams Route: IVPB; Infused Over: 1 hrs; Site: left hb antecubital; 14:30 Follow up: Response: No adverse reaction; IV Status: Completed infusion; IV Intake: sv 100ml 14:40 Drug: fentaNYL (PF) 50 mcg Route: IVP; Site: left antecubital; 14:51 Follow up: Response: Medication administered at discharge. Disposition: 11/16 09:01 Co-signature as Attending Physician, Faizan Olvera MD I agree with the assessment and kdr plan of care. Disposition: 11/16/19 13:18 Discharged to Home. Impression: Calculus of kidney and ureter. - Condition is Stable. - Discharge Instructions: Kidney Stones, [id number], Dietary Guidelines to Help Prevent Kidney Stones. - Prescriptions for Tylenol- Codeine #3 300-30 mg Oral Tablet - take 2 tablets by ORAL route every 6 hours As needed; 16 tablet. Zofran 4 mg Oral Tablet - take 1 tablet by ORAL route every 6 hours As needed; 20 tablet. Flomax 0.4 mg Oral Capsule, Sust. Release 24 hr - take 1 capsule by ORAL route once daily 1/2 hour following the same meal each day; 10 capsule. Diclofenac Sodium 75 mg Oral Tablet, Delayed Release (E.C.) - take 1 tablet by ORAL route 2 times per day As needed; 30 tablet. - Medication Reconciliation Form, Thank You Letter, Antibiotic Education, Prescription Opioid Use form. - Follow up: Emergency Department; When: As needed; Reason: Worsening of condition. Follow up: Private Physician; When: 2 - 3 days; Reason: Recheck today's complaints, Continuance of care, Re-evaluation by your physician. Signatures: Dispatcher [employer] MAHADND Libertad Whitaker, SANDRA-C PATENT SOLICITOR-Sunitha Torres RN RN sv Rittger, Kevin, MD MD [facility] Lora Recinos, SOY OLIVIER Jaclyn Davis RN RN Corrections: (The following items were deleted from the chart) 11/15 14:52 13:18 11/16/2019 13:18 Discharged to Home. Impression: Calculus of kidney and ureter. Condition is Stable. Forms are Medication Reconciliation Form, Thank You Letter, Antibiotic Education, Prescription Opioid Use. Follow up: Emergency Department; When: As needed; Reason: Worsening of condition. Follow up: Private Physician; When: 2 - 3 days; Reason: Recheck today's complaints, Continuance of care, Re-evaluation by your physician. kb
[2019-11-16] MEDS ORDERED: MAGNESIUM SULFATE 1 gm IVPB 1 GM/100 ML BAG IV ONE (13:35)
[2019-11-16] MEDS ORDERED: TAMSULOSIN 0.4 MG SR CAP ONE (13:35)
[2019-11-16] MEDS ORDERED: FENTANYL CITR 100 MCG/2 ML ONE (14:47)
[2019-11-16 15:10] VITALS: TEMP 98.5
[2019-11-16 15:11] VITALS: BP 146/71; O2SAT 100
== END 2019-11-16 14:52 | disposition home or self-care (01) ==
LOC: ER 10:20
DX: N20.2 Calculus of kidney with calculus of ureter (principal); E78.5 Hyperlipidemia, unspecified; F41.9 Anxiety disorder, unspecified
CPT/HCPCS: 96365; 96361; 85025; 80048; 36415; 81003; 76377; 74176; 96375; 99284; J3010; J3475; J7030; J2405 ×2

== ENCOUNTER 2021-11-07 03:36 | Emergency (ER) | payer OTHER ==
--- OUTSIDE RECORDS SUMMARY | 2021-11-07 03:39 | XMS REPORT | Continuity of Care Document ---
:1955 Author Organization [facility] t Address [address] [place] [address] Care Team Providers Name Role Phone ELIZABETH SAUER Attending Clinician Unavailable QUINTON ARRIAGA Attending Clinician Unavailable Jasmina Attending Clinician Unavailable Alecia Nava Attending Clinician [phone] Mario Alberto Trejo Attending Clinician Unavailable NATASHA GALICIA Attending Clinician Unavailable MD NTAASHA GALICIA Attending Clinician Unavailable ELIZABETH SAUER Admitting Clinician Unavailable Jasmina Admitting Clinician Unavailable ROSSANA RAHMAN Admitting Clinician Unavailable QUINTON ARRIAGA Admitting Clinician Unavailable MD NATASHA GALICIA Admitting Clinician Unavailable Payers Payer Name Policy Type Policy Number Effective Date Expiration Date S ournayla [facility] POS [id number] 2020 SELECT CHOICE 00:00:00 [facility] [id number] Problems This patient has no known problems. Allergies, Adverse Reactions, Alerts Allergy Allergy Status Severity Reaction(s) Onset Inactive Treating Comm ents Source Name Type Date Date Clinician No Known DA Active [facility] 09[facility]30 [place] [facility] 00:00: d 00 [facility] No Known DA Active U [facility] 09-30 [place] 00:00: d 00 [facility] NO KNOWN Allergy Active [facility] Medications This patient has no known medications. Vital Signs Vital Name Observation Time Observation Value Comments Source HEIGHT 2020-10-01 02:27:00 177.8 cm WEIGHT 2020-10-01 02:27:00 111.131 kg HEIGHT 2020-10-01 02:27:00 177.8 cm WEIGHT 2020-10-01 02:27:00 111.131 kg Procedures This patient has no known procedures. Encounters Start End Encounter Admission Attending Care Care Encounter Source Date/Time Date/Time Type Type Clinicians Facility Department ID 2021-01-06 [facility] [id number] 6 [facility] 03:29:31 MAHMOERIN 2021-02-15 2021-02-15 Outpatient [facility] [id number] [place] 00:00:00 00:00:00 QUINTON [facility] 2021-01-17 2021-01-17 Outpatient [facility] [id number] 40 [place] 10:36:00 10:36:00 [id number] [facility] 2021-01-15 2021-01-15 Outpatient [facility] U [id number] [place] 10:33:00 10:33:00 [id number] [facility] 2021-01-14 2021-01-14 Outpatient [facility] U [id number] [place] 06:31:00 06:31:00 [id number] [facility] 2021-01-14 2021-01-14 Outpatient [place], [facility] U [id number] 00:00:00 00:00:00 Alecia [id number] 2021-01-09 2021-01-09 Outpatient [facility] U [id number] [place] 02:55:00 02:55:00 [id number] [facility] 2020-12-28 2020-12-28 Outpatient [facility]U [id number] [place] 10:56:00 10:56:00 [id number] [facility] 2020-11-20 2020-11-20 Outpatient [facility]_L [facility]U [id number] [place] 04:36:00 04:36:00 [id number] [facility] 2020-09-30 2020-10-01 Emergency EM O'Yeny, [facility] SUDARSHAN [id number] [facility] 19:38:00 01:11:00 Mario Alberto [id number] [facility] [place] 2019-11-14 2019-11-14 Outpatient [facility] [id number] [place] 00:00:00 00:00:00 NATASHA [address] 2019-11-09 2019-11-09 Outpatient [facility] [id number] [place] 00:00:00 00:00:00 NATASHA [address] Results Test Description Test Time Test Comments Results Result Comments Source BLOOD CULTURE 2020-10-06 06:01:00 Test Item Value Reference Range Interpretation Comme nts CULTURE (BEAKER) (test code = 1095) No growth in 5 days BLOOD [id number] 06:01:00 Test Item Value Reference Range Interpretation Comments CULTURE (BEAKER) (test No growth in 5 days code = 1095) TISSUE [id number] 14:33:00Surgical Pathology Report Case: [id number] Authorizing Provider: Sridevi Marie MD Collected: 10/03/2020 05:32 PM Ordering Location: [address] Received: 10/04/2020 08:35 AM Service Pathologist: Isabel Draper MD Specimen: Gallbladder, Gallbladder A. GALLBLADDER, CHOLECYSTECTOMY: - CHRONIC CHOLECYSTITIS WITH CHOLELITHIASIS - NEGATIVE FOR DYSPLASIA OR MALIGNANCY Signing Pathologist Direct Phone Line: [phone] signed by Isabel Draper MD on 10/05/2020 at 2: 33 [id number] Gallbladder Received fresh labeled "gallbladder" is a 9.5 x 2.9 x 1.2 cm, intact, previously opened gallbladder with an attached stapled closed cystic duct. No cystic ductlymph nodes are identified. The serosal surface is baldwin-pink, focally congested at the neck with a 3.2 cm perforation at the fundus. The gallbladder is further opened to reveal a minimal amount of greenviscous bile and a baldwin-pink, velvety, mucosal surface which is focally congested at the fundus. The gallbladder wall ranges from 0.1 to 0.2 cm in maximum thickness. Found within the specimen container are two baldwin-green, bosselated, cylindrical choleliths measuring 2.1 and 2.2 cm in greatest dimension.No masses or lesions are identified. [employer] Inserting Machine Operator sections are submitted as follows:A1: cystic duct margin (blue, en face)A2: gallbladder wallMP/ewPerformed.URINALYSIS W/ REFLEX URINE [id number] 11:21:00 Test Item Value Reference Range Interpretation Comments COLOR (BEAKER) (test code = 470) Yellow CLARITY (BEAKER) (test code = 469) Clear SPECIFIC GRAVITY UA (BEAKER) (test 1.021 1.001-1.035 code = 468) PH UA (BEAKER) (test code = 467) 6.5 5.0-8.0 PROTEIN UA (BEAKER) (test code = Negative Negative 464) GLUCOSE UA (BEAKER) (test code = Negative Negative 365) KETONES UA (BEAKER) (test code = Negative Negative 371) BILIRUBIN UA (BEAKER) (test code = Negative Negative 462) BLOOD UA (BEAKER) (test code = 461) Negative Negative NITRITE UA (BEAKER) (test code = Negative Negative 465) LEUKOCYTE ESTERASE UA (BEAKER) Negative Negative (test code = 466) UROBILINOGEN UA (BEAKER) (test code 0.2 mg/dL 0.2-1.0 = 463) RBC UA (BEAKER) (test code = 519) 1 /HPF WBC UA (BEAKER) (test code = 520) 1 /HPF BACTERIA (BEAKER) (test code = 517) None Seen MUCUS (BEAKER) (test code = 1574) Rare CRYSTALS, URINE (BEAKER) (test code None Seen = 1521) SOURCE(BEAKER) (test code = 2795) Four H Agent ID - [auto]Four H Agent ID - techCOMPREHENSIVE METABOLIC [id number] 06:08:00 Test Item Value Reference Range Interpretation Comments TOTAL PROTEIN 6.2 gm/dL 6.0-8.3 (BEAKER) (test code = 770) ALBUMIN (BEAKER) 3.6 g/dL 3.5-5.0 (test code = 1145) ALKALINE PHOSPHATASE 89 U/L 40-150 (BEAKER) (test code = 346) BILIRUBIN TOTAL 0.6 mg/dL 0.2-1.2 (BEAKER) (test code = 377) SODIUM (BEAKER) (test 141 meq/L 136-145 code = 381) POTASSIUM (BEAKER) 4.1 meq/L 3.5-5.1 (test code = 379) CHLORIDE (BEAKER) 107 meq/L 98-107 (test code = 382) CO2 (BEAKER) (test 24 meq/L 22-29 code = 355) BLOOD UREA NITROGEN 17 mg/dL 7-21 (BEAKER) (test code = 354) CREATININE (BEAKER) 0.95 mg/dL 0.57-1.25 (test code = 358) GLUCOSE RANDOM 119 mg/dL 70-105 H (BEAKER) (test code = 652) CALCIUM (BEAKER) 8.3 mg/dL 8.4-10.2 L (test code = 697) AST (SGOT) (BEAKER) 59 U/L 5-34 H (test code = 353) ALT (SGPT) (BEAKER) 321 U/L 6-55 H (test code = 347) EGFR (BEAKER) (test 80 mL/min/1.73 ESTIMA TRISH GFR IS code = 1092) sq m NOT ACCURATE CREATININE CLEARANCE IN PREDICTING GLOMERULAR FILTRATION RATE . ESTIMATED GFR I S NOT APPLICABLE FOR DIALYSIS PATIEN TS. Four H Agent ID - PIAYA [id number] 06:08:00 Test Item Value Reference Range Interpretation Comments MAGNESIUM (BEAKER) (test code = 1.9 mg/dL 1.6-2.6 627) Four H Agent ID - PIAYA LCBC W/PLT COUNT & AUTO [id number] 05:46:00 Test Item Value Reference Range Interpretation Comments WHITE BLOOD CELL COUNT (BEAKER) 11.6 K/ L 3.5-10.5 H (test code = 775) RED BLOOD CELL COUNT (BEAKER) 4.10 M/ L 4.63-6.08 L (test code = 761) HEMOGLOBIN (BEAKER) (test code = 12.5 GM/DL 13.7-17.5 L 410) HEMATOCRIT (BEAKER) (test code = 37.3 % 40.1-51.0 L 411) MEAN CORPUSCULAR VOLUME (BEAKER) 91.0 fL 79.0-92.2 (test code = 753) MEAN CORPUSCULAR HEMOGLOBIN 30.5 pg 25.7-32.2 (BEAKER) (test code = 751) MEAN CORPUSCULAR HEMOGLOBIN CONC 33.5 GM/DL 32.3-36.5 (BEAKER) (test code = 752) RED CELL DISTRIBUTION WIDTH 13.0 % 11.6-14.4 (BEAKER) (test code = 412) PLATELET COUNT (BEAKER) (test 258 K/CU MM 150-450 code = 756) MEAN PLATELET VOLUME (BEAKER) 8.7 fL 9.4-12.4 L (test code = 754) NUCLEATED RED BLOOD CELLS 0 /100 WBC 0-0 (BEAKER) (test code = 413) NEUTROPHILS RELATIVE PERCENT 79 % (BEAKER) (test code = 429) LYMPHOCYTES RELATIVE PERCENT 11 % (BEAKER) (test code = 430) MONOCYTES RELATIVE PERCENT 9 % (BEAKER) (test code = 431) EOSINOPHILS RELATIVE PERCENT 0 % (BEAKER) (test code = 432) BASOPHILS RELATIVE PERCENT 0 % (BEAKER) (test code = 437) NEUTROPHILS ABSOLUTE COUNT 9.21 K/ L 1.78-5.38 H (BEAKER) (test code = 670) LYMPHOCYTES ABSOLUTE COUNT 1.33 K/ L 1.32-3.57 (BEAKER) (test code = 414) MONOCYTES ABSOLUTE COUNT (BEAKER) 1.00 K/ L 0.30-0.82 H (test code = 415) EOSINOPHILS ABSOLUTE COUNT 0.00 K/ L 0.04-0.54 L (BEAKER) (test code = 416) BASOPHILS ABSOLUTE COUNT (BEAKER) 0.02 K/ L 0.01-0.08 (test code = 417) IMMATURE GRANULOCYTES-RELATIVE 1 % 0-1 PERCENT (BEAKER) (test code = 2801) HEMOGLOBIN [id number] 08:13:00 Test Item Value Reference Range Interpretation Comments HEMOGLOBIN A1C (BEAKER) (test code = 6.9 % 4.3-6.1 H 368) COMPREHENSIVE METABOLIC [id number] 06:43:00 Test Item Value Reference Range Interpretation Comments TOTAL PROTEIN 6.7 gm/dL 6.0-8.3 (BEAKER) (test code = 770) ALBUMIN (BEAKER) 3.8 g/dL 3.5-5.0 (test code = 1145) ALKALINE PHOSPHATASE 101 U/L 40-150 (BEAKER) (test code = 346) BILIRUBIN TOTAL 0.8 mg/dL 0.2-1.2 (BEAKER) (test code = 377) SODIUM (BEAKER) (test 138 meq/L 136-145 code = 381) POTASSIUM (BEAKER) 3.8 meq/L 3.5-5.1 (test code = 379) CHLORIDE (BEAKER) 105 meq/L 98-107 (test code = 382) CO2 (BEAKER) (test 24 meq/L 22-29 code = 355) BLOOD UREA NITROGEN 14 mg/dL 7-21 (BEAKER) (test code = 354) CREATININE (BEAKER) 0.96 mg/dL 0.57-1.25 (test code = 358) GLUCOSE RANDOM 118 mg/dL 70-105 H (BEAKER) (test code = 652) CALCIUM (BEAKER) 8.7 mg/dL 8.4-10.2 (test code = 697) AST (SGOT) (BEAKER) 84 U/L 5-34 H (test code = 353) ALT (SGPT) (BEAKER) 432 U/L 6-55 H (test code = 347) EGFR (BEAKER) (test 79 mL/min/1.73 ESTIMA TRISH GFR IS code = 1092) sq m NOT ACCURATE CREATININE CLEARANCE IN PREDICTING GLOMERULAR FILTRATION RATE . ESTIMATED GFR I S NOT APPLICABLE FOR DIALYSIS PATIEN TS. Four H Agent ID - LAST [id number] 06:43:00 Test Item Value Reference Range Interpretation Comments MAGNESIUM (BEAKER) (test code = 1.8 mg/dL 1.6-2.6 627) Four H Agent ID - LAST LCBC W/PLT COUNT & AUTO [id number] 06:00:00 Test Item Value Reference Range Interpretation Comments WHITE BLOOD CELL COUNT (BEAKER) 11.3 K/ L 3.5-10.5 H (test code = 775) RED BLOOD CELL COUNT (BEAKER) 4.38 M/ L 4.63-6.08 L (test code = 761) HEMOGLOBIN (BEAKER) (test code = 13.0 GM/DL 13.7-17.5 L 410) HEMATOCRIT (BEAKER) (test code = 38.8 % 40.1-51.0 L 411) MEAN CORPUSCULAR VOLUME (BEAKER) 88.6 fL 79.0-92.2 (test code = 753) MEAN CORPUSCULAR HEMOGLOBIN 29.7 pg 25.7-32.2 (BEAKER) (test code = 751) MEAN CORPUSCULAR HEMOGLOBIN CONC 33.5 GM/DL 32.3-36.5 (BEAKER) (test code = 752) RED CELL DISTRIBUTION WIDTH 12.6 % 11.6-14.4 (BEAKER) (test code = 412) PLATELET COUNT (BEAKER) (test 268 K/CU MM 150-450 code = 756) MEAN PLATELET VOLUME (BEAKER) 8.9 fL 9.4-12.4 L (test code = 754) NUCLEATED RED BLOOD CELLS 0 /100 WBC 0-0 (BEAKER) (test code = 413) NEUTROPHILS RELATIVE PERCENT 80 % (BEAKER) (test code = 429) LYMPHOCYTES RELATIVE PERCENT 12 % (BEAKER) (test code = 430) MONOCYTES RELATIVE PERCENT 8 % (BEAKER) (test code = 431) EOSINOPHILS RELATIVE PERCENT 0 % (BEAKER) (test code = 432) BASOPHILS RELATIVE PERCENT 0 % (BEAKER) (test code = 437) NEUTROPHILS ABSOLUTE COUNT 9.07 K/ L 1.78-5.38 H (BEAKER) (test code = 670) LYMPHOCYTES ABSOLUTE COUNT 1.34 K/ L 1.32-3.57 (BEAKER) (test code = 414) MONOCYTES ABSOLUTE COUNT (BEAKER) 0.86 K/ L 0.30-0.82 H (test code = 415) EOSINOPHILS ABSOLUTE COUNT 0.00 K/ L 0.04-0.54 L (BEAKER) (test code = 416) BASOPHILS ABSOLUTE COUNT (BEAKER) 0.01 K/ L 0.01-0.08 (test code = 417) IMMATURE GRANULOCYTES-RELATIVE 1 % 0-1 PERCENT (BEAKER) (test code = 2801) FL, [id number] 10:37:00Intra-op imaging Reason for exam:->choledocholithiasis [place] CHETANROB[place]O CARLOS : 1955 Sex: MFluoroscopic unit utilized for a procedure performed in the OR. No interpretation was requested. Refer to the operative report for findings. Refer to PACS for patient radiation dose information.COMPREHENSIVE METABOLIC [id number] 06:48:00 Test Item Value Reference Range Interpretation Comments TOTAL PROTEIN 6.4 gm/dL 6.0-8.3 (BEAKER) (test code = 770) ALBUMIN (BEAKER) 3.7 g/dL 3.5-5.0 (test code = 1145) ALKALINE PHOSPHATASE 114 U/L 40-150 (BEAKER) (test code = 346) BILIRUBIN TOTAL 0.7 mg/dL 0.2-1.2 (BEAKER) (test code = 377) SODIUM (BEAKER) (test 143 meq/L 136-145 code = 381) POTASSIUM (BEAKER) 4.2 meq/L 3.5-5.1 (test code = 379) CHLORIDE (BEAKER) 106 meq/L 98-107 (test code = 382) CO2 (BEAKER) (test 26 meq/L 22-29 code = 355) BLOOD UREA NITROGEN 15 mg/dL 7-21 (BEAKER) (test code = 354) CREATININE (BEAKER) 1.11 mg/dL 0.57-1.25 (test code = 358) GLUCOSE RANDOM 142 mg/dL 70-105 H (BEAKER) (test code = 652) CALCIUM (BEAKER) 9.1 mg/dL 8.4-10.2 (test code = 697) AST (SGOT) (BEAKER) 233 U/L 5-34 H (test code = 353) ALT (SGPT) (BEAKER) 665 U/L 6-55 H (test code = 347) EGFR (BEAKER) (test 67 mL/min/1.73 ESTIMA TRISH GFR IS code = 1092) sq m NOT ACCURATE CREATININE CLEARANCE IN PREDICTING GLOMERULAR FILTRATION RATE . ESTIMATED GFR I S NOT APPLICABLE FOR DIALYSIS PATIEN TS. Four H Agent ID - MARQUIS [id number] 06:48:00 Test Item Value Reference Range Interpretation Comments MAGNESIUM (BEAKER) (test code = 2.1 mg/dL 1.6-2.6 627) Four H Agent ID - MARQUIS MCBC W/PLT COUNT & AUTO [id number] 05:09:00 Test Item Value Reference Range Interpretation Comments WHITE BLOOD CELL COUNT (BEAKER) 4.8 K/ L 3.5-10.5 (test code = 775) RED BLOOD CELL COUNT (BEAKER) 4.57 M/ L 4.63-6.08 L (test code = 761) HEMOGLOBIN (BEAKER) (test code = 13.3 GM/DL 13.7-17.5 L 410) HEMATOCRIT (BEAKER) (test code = 41.3 % 40.1-51.0 411) MEAN CORPUSCULAR VOLUME (BEAKER) 90.4 fL 79.0-92.2 (test code = 753) MEAN CORPUSCULAR HEMOGLOBIN 29.1 pg 25.7-32.2 (BEAKER) (test code = 751) MEAN CORPUSCULAR HEMOGLOBIN CONC 32.2 GM/DL 32.3-36.5 L (BEAKER) (test code = 752) RED CELL DISTRIBUTION WIDTH 12.9 % 11.6-14.4 (BEAKER) (test code = 412) PLATELET COUNT (BEAKER) (test 247 K/CU MM 150-450 code = 756) MEAN PLATELET VOLUME (BEAKER) 8.8 fL 9.4-12.4 L (test code = 754) NUCLEATED RED BLOOD CELLS 0 /100 WBC 0-0 (BEAKER) (test code = 413) NEUTROPHILS RELATIVE PERCENT 57 % (BEAKER) (test code = 429) LYMPHOCYTES RELATIVE PERCENT 25 % (BEAKER) (test code = 430) MONOCYTES RELATIVE PERCENT 14 % (BEAKER) (test code = 431) EOSINOPHILS RELATIVE PERCENT 3 % (BEAKER) (test code = 432) BASOPHILS RELATIVE PERCENT 1 % (BEAKER) (test code = 437) NEUTROPHILS ABSOLUTE COUNT 2.73 K/ L 1.78-5.38 (BEAKER) (test code = 670) LYMPHOCYTES ABSOLUTE COUNT 1.21 K/ L 1.32-3.57 L (BEAKER) (test code = 414) MONOCYTES ABSOLUTE COUNT (BEAKER) 0.65 K/ L 0.30-0.82 (test code = 415) EOSINOPHILS ABSOLUTE COUNT 0.13 K/ L 0.04-0.54 (BEAKER) (test code = 416) BASOPHILS ABSOLUTE COUNT (BEAKER) 0.03 K/ L 0.01-0.08 (test code = 417) IMMATURE GRANULOCYTES-RELATIVE 0 % 0-1 PERCENT (BEAKER) (test code = 2801) POCT-GLUCOSE [id number] 12:52:00 Test Item Value Reference Range Interpretation Comments POC-GLUCOSE METER 146 mg/dL 70-110 H : TESTED A T [facility] 6720 (BEAKER) (test code = [facility], 1538) 77397: Four H Agent/Techni grzegorz ID = [id number] for Jacqueline Cash POCT-GLUCOSE [id number] 07:21:00 Test Item Value Reference Range Interpretation Comments POC-GLUCOSE METER 106 mg/dL 70-110 : TESTED A T [facility] 6720 (BEAKER) (test code = [facility], 1538) 36234: Four H Agent/Techni grzegorz ID = [id number] for GR AHAM, ADEBAYO BASIC METABOLIC [id number] 06:28:00 Test Item Value Reference Range Interpretation Comments SODIUM (BEAKER) 143 meq/L 136-145 (test code = 381) POTASSIUM (BEAKER) 3.9 meq/L 3.5-5.1 (test code = 379) CHLORIDE (BEAKER) 109 meq/L 98-107 H (test code = 382) CO2 (BEAKER) (test 23 meq/L 22-29 code = 355) BLOOD UREA NITROGEN 15 mg/dL 7-21 (BEAKER) (test code = 354) CREATININE (BEAKER) 0.95 mg/dL 0.57-1.25 (test code = 358) GLUCOSE RANDOM 88 mg/dL 70-105 (BEAKER) (test code = 652) CALCIUM (BEAKER) 9.0 mg/dL 8.4-10.2 (test code = 697) EGFR (BEAKER) (test 80 mL/min/1.73 ESTIMA TRISH GFR IS code = 1092) sq m NOT ACCURATE CREATININE CLEARANCE IN PREDICTING GLOMERULAR FILTRATION RATE . ESTIMATED GFR I S NOT APPLICABLE FOR DIALYSIS PATIEN TS. Four H Agent ID - JANUARYAYA [id number] 06:28:00 Test Item Value Reference Range Interpretation Comments MAGNESIUM (BEAKER) (test code = 1.9 mg/dL 1.6-2.6 627) Four H Agent ID - LAST LHEPATIC FUNCTION [id number] 06:28:00 Test Item Value Reference Range Interpretation Comments TOTAL PROTEIN (BEAKER) (test code = 6.5 gm/dL 6.0-8.3 770) ALBUMIN (BEAKER) (test code = 1145) 3.9 g/dL 3.5-5.0 BILIRUBIN TOTAL (BEAKER) (test code 1.6 mg/dL 0.2-1.2 H = 377) BILIRUBIN DIRECT (BEAKER) (test 0.7 mg/dL 0.1-0.5 H code = 706) ALKALINE PHOSPHATASE (BEAKER) (test 91 U/L 40-150 code = 346) AST (SGOT) (BEAKER) (test code = 414 U/L 5-34 H 353) ALT (SGPT) (BEAKER) (test code = 859 U/L 6-55 H 347) Four H Agent ID - LAST [id number] 06:28:00 Test Item Value Reference Range Interpretation Comments LIPASE (BEAKER) (test code = 749) 14 U/L 8-78 Four H Agent ID - LAST LPROTHROMBIN [id number] 05:38:00 Test Item Value Reference Range Interpretation Comments PROTIME (BEAKER) 14.8 seconds 11.9-14.2 H (test code = 759) INR (BEAKER) (test 1.18 See_Comment [Automat ed message] code = 370) The system [employer] generated this result transmitted ref erence range: <=5.90. The reference range was not used to int erpret this result as normal/abnormal . RECOMMENDED COUMADIN/WARFARIN INR THERAPY RANGESSTANDARD DOSE: 2.0 - 3.0 Includes: PROPHYLAXIS for venous thrombosis, systemic embolization; TREATMENT for venous thrombosis and/or pulmonary embolus.HIGH RISK: Target INR is 2.5-3.5 for patients with mechanical heart valves.CBC W/PLT COUNT & AUTO [id number] 05:13:00 Test Item Value Reference Range Interpretation Comments WHITE BLOOD CELL COUNT (BEAKER) 6.4 K/ L 3.5-10.5 (test code = 775) RED BLOOD CELL COUNT (BEAKER) 4.40 M/ L 4.63-6.08 L (test code = 761) HEMOGLOBIN (BEAKER) (test code = 13.0 GM/DL 13.7-17.5 L 410) HEMATOCRIT (BEAKER) (test code = 39.8 % 40.1-51.0 L 411) MEAN CORPUSCULAR VOLUME (BEAKER) 90.5 fL 79.0-92.2 (test code = 753) MEAN CORPUSCULAR HEMOGLOBIN 29.5 pg 25.7-32.2 (BEAKER) (test code = 751) MEAN CORPUSCULAR HEMOGLOBIN CONC 32.7 GM/DL 32.3-36.5 (BEAKER) (test code = 752) RED CELL DISTRIBUTION WIDTH 12.9 % 11.6-14.4 (BEAKER) (test code = 412) PLATELET COUNT (BEAKER) (test 225 K/CU MM 150-450 code = 756) MEAN PLATELET VOLUME (BEAKER) 9.3 fL 9.4-12.4 L (test code = 754) NUCLEATED RED BLOOD CELLS 0 /100 WBC 0-0 (BEAKER) (test code = 413) NEUTROPHILS RELATIVE PERCENT 69 % (BEAKER) (test code = 429) LYMPHOCYTES RELATIVE PERCENT 17 % (BEAKER) (test code = 430) MONOCYTES RELATIVE PERCENT 11 % (BEAKER) (test code = 431) EOSINOPHILS RELATIVE PERCENT 2 % (BEAKER) (test code = 432) BASOPHILS RELATIVE PERCENT 0 % (BEAKER) (test code = 437) NEUTROPHILS ABSOLUTE COUNT 4.45 K/ L 1.78-5.38 (BEAKER) (test code = 670) LYMPHOCYTES ABSOLUTE COUNT 1.07 K/ L 1.32-3.57 L (BEAKER) (test code = 414) MONOCYTES ABSOLUTE COUNT (BEAKER) 0.72 K/ L 0.30-0.82 (test code = 415) EOSINOPHILS ABSOLUTE COUNT 0.15 K/ L 0.04-0.54 (BEAKER) (test code = 416) BASOPHILS ABSOLUTE COUNT (BEAKER) 0.02 K/ L 0.01-0.08 (test code = 417) IMMATURE GRANULOCYTES-RELATIVE 1 % 0-1 PERCENT (BEAKER) (test code = 2801) - [facility] [place] [id number] 21:11:00 [facility] 1955 Sex: M Name: ROBERTO CARLOS BENTON [facility] : 1955 Age/S: 65 / M [address] [address] [place] Unit #: [id number] Loc: [place] [address] Phys: Mario Alberto Trejo MD Acct: [id number] Dis Date: Status: REG ER PHONE #: [phone] Exam Date: 09/30/20202049 FAX #: Reason: RUQ pain EXAMS: CPT: [id number] US ABDOMEN LTD 22433 Dictation location: [facility]. LIMITED ABDOMINAL ULTRASOUND HISTORY: Right upper quadrant pain FINDINGS: The aorta is normal in caliber. Proximal IVC is patent. The visualized portions of pancreas are unremarkable. The liver is mildly enlarged measuring 17.3 cm. Trace increased echotexture. No focal hepatic lesion. The gallbladder is significantly distended, hydropic. Several gallstones and sludge noted within the gallbladder. Gallbladder wall measures up to 2 mm in thickness. There is likely a small amount of pericholecystic fluid. Common bile duct is prominent measuring 7 mm. The right kidney measures 10.8 x 4.8 x 4.9 cm and is normal in size, shape and echotexture. No hydronephrosis. IMPRESSION: Significantly distended gallbladder. Several gallstones are noted. Small amount of pericholecystic fluid. No gallbladder wall thickening however findings may still relate to acute cholecystitis given the atrophic appearance of the gallbladder. Upper limits of normal to the common bile duct. If thereis concern for a distal biliary obstruction, an ERCP/MRCP may be helpful for further assessment. Hepatomegaly and steatosis. at 2110 Reported and signed by: Luz Ellis M.D. CC: Technologist: Ruth Casas RDMS Trnscb Date/Time: 09/30/2020 (2110) [id number] PAGE 1 Signed Report Name: ROBERTO CARLOS BENTON [facility] : 1955 Age/S: 65 / M [address] [place] Unit #: [id number] Loc: [place] [address] Phys: Mario Alberto Trejo MD Acct: [id number] Dis Date: Status: REG ER PHONE #: [phone] Exam Date: 2020 FAX #: Reason: RUQ pain EXAMS: CPT: [id number] US ABDOMEN LTD 34555 <Continued> OrigPrint D/T: S: 09/30/2020 (2113) Probe: PAGE 2 Signed [id number] (COVID-19) RNA [Presence] in Respiratory specimen by LAURA with probe [id number] 22:31:51 Test Item Value Reference Range Interpretation Comments SARS-CoV-2 (COVID-19) RNA Not detected Not-Detected [Presence] in Respiratory specimen by LAURA with probe detection (test code = 31852-8)
[2021-11-07] MEDS ORDERED: NA CHLORIDE 0.9% 1,000 ML ONE (04:17)
--- NOTE | 2021-11-07 04:24 | EDPHYS ---
Physician Documentation [facility] Name: Lobo Mayers Age: 66 yrs Sex: Male : 1955 Arrival Date: 11/07/2021 Time: 03:39 Bed 8 Private MD: MAHAD Physician Familia Up HPI: 11/07 04:19 This 66 yrs old Male presents to ER via Ambulatory with complaints of paz Shortness Of Breath, Cough, Chills. Historical: - Allergies: 04:01 No Known Allergies; kl - Home Meds: 04:01 citalopram oral 1 cap once daily for anxiety with depression [Active]; Crestor 10 mg kl oral tab 1 tab once daily [Active]; losartan 100 mg oral tab 1 tab once daily [Active]; Zetia 5mg Oral 1 tab once daily [Active]; - PMHx: 04:03 Hypertensive disorder; high cholesterol; Anxiety; kl - PSHx: 04:03 Cholecystectomy; kl - Immunization history:: Adult Immunizations up to date. - Social history:: Smoking status: Patient denies any tobacco usage or history of. ROS: 04:19 Eyes: Negative for injury, pain, redness, and discharge, ENT: Negative for injury, paz pain, and discharge, Neck: Negative for injury, pain, and swelling, Cardiovascular: Negative for chest pain, palpitations, and edema, Abdomen/GI: Negative for abdominal pain, nausea, vomiting, diarrhea, and constipation, Back: Negative for injury and pain, : Negative for injury, bleeding, discharge, and swelling, MS/Extremity: Negative for injury and deformity, Skin: Negative for injury, rash, and discoloration, Neuro: Negative for headache, weakness, numbness, tingling, and seizure, Psych: Negative for depression, anxiety, suicide ideation, homicidal ideation, and hallucinations, Allergy/Immunology: Negative for hives, rash, and allergies, Endocrine: Negative for neck swelling, polydipsia, polyuria, polyphagia, and marked weight changes, Hematologic/Lymphatic: Negative for swollen nodes, abnormal bleeding, and unusual bruising. 04:19 Constitutional: Positive for body aches, chills, fatigue, fever, malaise. Exam: 04:19 Constitutional: This is a well developed, well nourished patient who is awake, alert, paz and in no acute distress. Head/Face: Normocephalic, atraumatic. Eyes: Pupils equal round and reactive to light, extra-ocular motions intact. Lids and lashes normal. Conjunctiva and sclera are non-icteric and not injected. Cornea within normal limits. Periorbital areas with no swelling, redness, or edema. ENT: Nares patent. No nasal discharge, no septal abnormalities noted. Tympanic membranes are normal and external auditory canals are clear. Oropharynx with no redness, swelling, or masses, exudates, or evidence of obstruction, uvula midline. Mucous membranes moist. Neck: Trachea midline, no thyromegaly or masses palpated, and no cervical lymphadenopathy. Supple, full range of motion without nuchal rigidity, or vertebral point tenderness. No Meningismus. Chest/axilla: Normal chest wall appearance and motion. Nontender with no deformity. No lesions are appreciated. Cardiovascular: Regular rate and rhythm with a normal S1 and S2. No gallops, murmurs, or rubs. Normal PMI, no JVD. No pulse deficits. Respiratory: Lungs have equal breath sounds bilaterally, clear to auscultation and percussion. No rales, rhonchi or wheezes noted. No increased work of breathing, no retractions or nasal flaring. Abdomen/GI: Soft, non-tender, with normal bowel sounds. No distension or tympany. No guarding or rebound. No evidence of tenderness throughout. Back: No spinal tenderness. No costovertebral tenderness. Full range of motion. Male : Normal genitalia with no discharge or lesions. Skin: Warm, dry with normal turgor. Normal color with no rashes, no lesions, and no evidence of cellulitis. MS/ Extremity: Pulses equal, no cyanosis. Neurovascular intact. Full, normal range of motion. Neuro: Awake and alert, GCS 15, oriented to person, place, time, and situation. Cranial nerves II-XII grossly intact. Motor strength 5/5 in all extremities. Sensory grossly intact. Cerebellar exam normal. Normal gait. Psych: Awake, alert, with orientation to person, place and time. Behavior, mood, and affect are within normal limits. 04:27 ECG was reviewed by the Attending Physician. [facility] Vital Signs: 03:58 BP 140 / 55; Pulse 84; Resp 20; Temp 99.3(O); Pulse Ox 97% on R/A; Pain 4/10; kl 05:54 BP 119 / 59; Pulse 86; Resp 18; Pulse Ox 97% on R/A; Pain 0/10; kl 06:42 BP 111 / 65; Pulse 80; Resp 18; Pulse Ox 95% on R/A; Pain 0/10; kl MDM: 03:52 Patient medically screened. paz 04:20 Differential diagnosis: asthma, Bronchitis pneumonia, reactive airway disease. [facility] Antibiotic administration: The patient is discharged and will get outpatient antibiotics, Zithromax. The patient's Wells Deep Vein Thrombosis Score was calculated as follows: Total Score: 0-2 Pts- Low Risk. The patient's pulmonary embolism risk score was calculated as follows: Total Score: 3-6 points. This patient was found to be at moderate risk for a pulmonary embolism by using the Well's assessment criteria. Immunization status: Pneumococcal vaccine: Influenza vaccine: Data reviewed: vital signs, nurses notes, lab test result(s), EKG, radiologic studies, CT scan. Data interpreted: monitoring coordinator: rate is 84 beats/min, rhythm is regular, Pulse oximetry: on room air is 97 %. Test interpretation: by ED physician or midlevel provider: ECG, plain radiologic studies. 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 11/07 03:53 Order name: Basic Metabolic Panel; Complete Time: 05: paz 11/07 03:53 Order name: CBC with Diff; Complete Time: 05:20 paz 11/07 03:53 Order name: LFT's; Complete Time: 05:26 paz 11/07 03:53 Order name: Magnesium; Complete Time: 05:26 paz 11/07 03:53 Order name: NT PRO-BNP; Complete Time: 05:26 paz 11/07 03:53 Order name: PT-INR; Complete Time: 05:20 paz 11/07 03:53 Order name: Troponin HS; Complete Time: 05:26 paz 11/07 03:53 Order name: XRAY Chest (1 view) [facility] 11/07 04:48 Order name: D-Dimer; Complete Time: 05:20 EDMS 11/07 03:53 Order name: EKG; Complete Time: 03:59 [facility] 11/07 03:53 Order name: Cardiac monitoring; Complete Time: 04:41 [facility] 11/07 03:53 Order name: EKG - Nurse/Tech; Complete Time: 04:41 [facility] 11/07 03:53 Order name: IV Saline Lock; Complete Time: 04:41 [facility] 11/07 03:53 Order name: Labs collected and sent; Complete Time: 04:41 [facility] 11/07 03:53 Order name: O2 Per Protocol; Complete Time: 04:41 [facility] 11/07 03:53 Order name: O2 Sat Monitoring; Complete Time: 04:41 [facility] 11/07 04:19 Order name: Misc. Order: BEBTELOVIMAB; Complete Time: 04:53 [facility] EC:27 Rate is 84 beats/min. Rhythm is regular. QRS [place] is Normal. HI interval is normal. QRS paz interval is normal. QT interval is normal. No Q waves. T waves are Normal. No ST changes noted. Clinical impression: NSR w/ Non-specific ST/T Changes and No evidence of ischemia. Interpreted by me. Reviewed by me. Administered Medications: 04:32 Drug: NS 0.9% 1000 ml Route: IV; Rate: 125 ml/hr; Site: right antecubital; kd3 04:32 Drug: Tylenol 1000 mg Route: PO; kd3 04:40 Follow up: Response: No adverse reaction kd3 04:40 Drug: Pepcid (famotidine) 40 mg Route: PO; kd3 04:40 Follow up: Response: No adverse reaction kd3 04:40 Drug: Zithromax (azithromycin) 500 mg Route: PO; kd3 04:41 Follow up: Response: No adverse reaction kd3 04:40 Drug: Aspirin 162 mg Route: PO; kd3 04:41 Follow up: Response: No adverse reaction kd3 05:27 CANCELLED (Duplicate Order): Magnesium Sulfate 1 grams IVPB once over 1 hrs paz 05:28 CANCELLED (Duplicate Order): Magnesium Sulfate 2 grams IVPB once over 2 hrs paz 05:40 Drug: Magnesium Sulfate 2 grams Route: IVPB; Infused Over: 1 hrs; Site: left kl antecubital; Disposition Summary: 11/07/21 05:33 Discharge Ordered Location: Home(11/07/21 05:33) paz Problem: new(11/07/21 05:33) paz Symptoms: have improved(11/07/21 05:33) paz Condition: Stable(11/07/21 05:33) paz Diagnosis - Fever, unspecified(11/07/21 05:33) paz - Coronavirus infection, unspecified(11/07/21 05:33) paz - SARS-associated coronavirus as the cause of diseases classified elsewhere paz - Cough paz - Hypomagnesemia paz Followup: paz - With: Private Physician - When: 2 - 3 days - Reason: Recheck today's complaints, Continuance of care, Re-evaluation by your physician Discharge Instructions: - Discharge Summary Sheet paz - Fever, Adult paz - Hypomagnesemia paz - Upper Respiratory Infection, Adult paz - Cough, Adult, [id number] paz - Viral Respiratory Infection, [id number] paz - Aspirin and Your Heart paz - Cough, Adult paz - Fever, Adult, [id number] [facility] - COVID-19 [facility] - Things to Know about the COVID-19 Pandemic - [facility] - 10 Things You Can Do to Manage Your COVID-19 Symptoms at Home - [facility] - COVID-19: Quarantine vs. Isolation - [facility] - Prevent the Spread of COVID-19 if You Are Sick - [facility] Forms: - Medication Reconciliation Form [facility] - Thank You Letter [facility] - Antibiotic Education [facility] - Prescription Opioid Use [facility] Prescriptions: - Pepcid 20 mg Oral Tablet - take 1 tablet by ORAL route every 12 hours for 30 days; 60 tablet; Refills: 0, [facility] Product Selection Permitted - Tessalon Perles 100 mg Oral Capsule - take 2 capsule by ORAL route every 8 hours As needed; 45 capsule; Refills: 0, [facility] Product Selection Permitted - Zithromax 500 mg Oral Tablet - take 1 tablet by ORAL route once daily for 5 days; 5 tablet; Refills: 0, [facility] Product Selection Permitted - budesonide 180 mcg/actuation Inhalation aerosol powdr breath activated - inhale 1 puff by INHALATION route 2 times per day; 1 Pump; Refills: 0, Product [facility] Selection Permitted Signatures: Dispatcher [employer] Colleen Quevedo RN RN kl Anderson, Corey, MD MD cha Doucette, Kyli RN RN kd3 Corrections: (The following items were deleted from the chart) 04:04 04:01 Home Meds: Zetia 10 mg Oral tab 1 tab once daily; kl kl 04:04 04:01 PMHx: Hyperlipidemia; kl kl 04:04 04:01 PMHx: Anxiety; kl kl 04:48 04:23 D-DIMER+COAG.LAB.BRZ ordered. EDMS EDMS 05: 05:27 Magnesium Sulfate 1 grams IVPB once over 1 hrs ordered. [facility] : 04:23 Home [facility] : 04:23 new [facility] 05: 04:23 have improved [facility] : 04:23 Stable [facility] : 04:23 Fever, unspecified [facility] : 04:23 Acute upper respiratory infection, unspecified [facility] : 04:23 Coronavirus infection, unspecified [facility] : 04:23 Pneumonia due to SARS-associated coronavirus [facility] 05:28 05:27 Magnesium Sulfate 2 grams IVPB once over 2 hrs ordered. [facility]
--- NOTE | 2021-11-07 04:24 | ER ---
Nurse's Notes [facility] Home Name: Lobo Mayers Age: 66 yrs Sex: Male : 1955 Arrival Date: 11/07/2021 Time: 03:39 Bed 8 Private MD: Diagnosis: Fever, unspecified;Coronavirus infection, unspecified;SARS-associated coronavirus as the cause of diseases classified elsewhere;Cough;Hypomagnesemia Presentation: 11/07 03:58 Chief complaint: Patient states: chills and SOB began at 0230 this am. Coronavirus kl screen: Vaccine status: Patient reports receiving the 2nd dose of the covid vaccine. Date April 13, 2021 Phizer with a booster shot. Ebola Screen: Patient negative for fever greater than or equal to 101.5 degrees Fahrenheit, and additional compatible Ebola Virus Disease symptoms. Initial Sepsis Screen: Does the patient meet any 2 criteria? No. Patient's initial sepsis screen is negative. Does the patient have a suspected source of infection? No. Patient's initial sepsis screen is negative. Risk Assessment: Do you want to hurt yourself or someone else? Patient reports no desire to harm self or others. Note pt reports took home OCVID test on Thursday evening with positive result. Onset of symptoms was November 04, 2021. 03:58 Method Of Arrival: Ambulatory 03:58 Acuity: [place] 3 kl Triage Assessment: 06:45 Respiratory: Reports shortness of breath Onset: The symptoms/episode began/occurred kl just prior to arrival, the patient has mild shortness of breath. Historical: - Allergies: 04:01 No Known Allergies; kl - Home Meds: 04:01 citalopram oral 1 cap once daily for anxiety with depression [Active]; Crestor 10 mg kl oral tab 1 tab once daily [Active]; losartan 100 mg oral tab 1 tab once daily [Active]; Zetia 5mg Oral 1 tab once daily [Active]; - PMHx: 04:03 Hypertensive disorder; high cholesterol; Anxiety; kl - PSHx: 04:03 Cholecystectomy; kl - Immunization history:: Adult Immunizations up to date. - Social history:: Smoking status: Patient denies any tobacco usage or history of. Screenin:05 Abuse screen: Denies threats or abuse. Nutritional screening: No deficits noted. kl Tuberculosis screening: No symptoms or risk factors identified. Fall Risk None identified. Assessment: 04:04 General: Appears in no apparent distress. comfortable, Behavior is calm, cooperative. Pain: Complains of pain in generalized body aches Pain currently is 4 out of 10 on a pain scale. Neuro: No deficits noted. Ellis Agitation-Sedation Scale (RASS): 0 - Alert and Calm. Cardiovascular: No deficits noted. Heart tones S1 S2. Respiratory: No deficits noted. Airway is patent Trachea midline Respiratory effort is even, unlabored, Breath sounds are clear bilaterally. GI: No deficits noted. No signs and/or symptoms were reported involving the gastrointestinal system. : No deficits noted. No signs and/or symptoms were reported regarding the genitourinary system. EENT: No deficits noted. No signs and/or symptoms were reported regarding the EENT system. Derm: No deficits noted. No signs and/or symptoms reported regarding the dermatologic system. 05:54 Reassessment: Patient appears in no apparent distress at this time. Patient and/or kl family updated on plan of care and expected duration. Pain level reassessed. 06:44 Cardiovascular: Rhythm is sinus rhythm. Vital Signs: 03:58 BP 140 / 55; Pulse 84; Resp 20; Temp 99.3(O); Pulse Ox 97% on R/A; Pain 4/10; kl 05:54 BP 119 / 59; Pulse 86; Resp 18; Pulse Ox 97% on R/A; Pain 0/10; kl 06:42 BP 111 / 65; Pulse 80; Resp 18; Pulse Ox 95% on R/A; Pain 0/10; kl ED Course: 03:39 Patient arrived in ED. bp1 03:49 Jordyn Barrera, SOY is Primary Nurse. kd3 03:52 Familia Up MD is Attending Physician. paz 04:01 Triage completed. kl 04:13 XRAY Chest (1 view) In Process Unspecified. EDMS 04:26 Inserted saline lock: 20 gauge in left antecubital area, using aseptic technique. kl 05:30 No apparent distress. Resting quietly. kl 06:43 No provider procedures requiring assistance completed. IV discontinued, intact, kl bleeding controlled, No redness/swelling at site. Pressure dressing applied. 06:44 Arm band placed on right wrist. kl 06:45 Patient has correct armband on for positive identification. kl Administered Medications: 04:32 Drug: NS 0.9% 1000 ml Route: IV; Rate: 125 ml/hr; Site: right antecubital; kd3 04:32 Drug: Tylenol 1000 mg Route: PO; kd3 04:40 Follow up: Response: No adverse reaction kd3 04:40 Drug: Pepcid (famotidine) 40 mg Route: PO; kd3 04:40 Follow up: Response: No adverse reaction kd3 04:40 Drug: Zithromax (azithromycin) 500 mg Route: PO; kd3 04:41 Follow up: Response: No adverse reaction kd3 04:40 Drug: Aspirin 162 mg Route: PO; kd3 04:41 Follow up: Response: No adverse reaction kd3 05:27 CANCELLED (Duplicate Order): Magnesium Sulfate 1 grams IVPB once over 1 hrs paz 05:28 CANCELLED (Duplicate Order): Magnesium Sulfate 2 grams IVPB once over 2 hrs paz 05:40 Drug: Magnesium Sulfate 2 grams Route: IVPB; Infused Over: 1 hrs; Site: left kl antecubital; Medication: 06:45 VIS not applicable for this client. Outcome: 04:23 Discharge ordered by . paz 05:33 Discharge ordered by . [facility] 06:44 Discharged to home ambulatory. 06:44 Condition: stable 06:44 Discharge instructions given to patient, Instructed on discharge instructions, follow up and referral plans. medication usage, Demonstrated understanding of instructions, follow-up care, medications, Prescriptions given X 4. 06:45 Patient left the ED. Signatures: Dispatcher [employer] EDMS Colleen Lr RN RN kl Anderson, Corey, MD MD cha [place], Brittany bp1 Doucette, Kyli RN RN kd3 Corrections: (The following items were deleted from the chart) 04:04 04:01 Home Meds: Zetia 10 mg Oral tab 1 tab once daily; [facility] 04:04 04:01 PMHx: Hyperlipidemia; [facility] 04:04 04:01 PMHx: Anxiety; kl kl
[2021-11-07] MEDS ORDERED: ACETAMINOPHEN 500 MG TAB ONE (04:30)
[2021-11-07] MEDS ORDERED: ASPIRIN EC 81 MG TAB PO ONE (04:31)
[2021-11-07] MEDS ORDERED: FAMOTIDINE 20 MG TAB ONE (04:31)
[2021-11-07] MEDS ORDERED: BEBTELOVIMAB 175 MG/2 ML VIAL IV ONE (04:31)
[2021-11-07] MEDS ORDERED: AZITHROMYCIN 250 MG TAB ONE (04:31)
[2021-11-07 04:59] LABS: Absolute Lymphocytes (CBC) 1.2 K/uL (0.7-4.9); Hematocrit 44.4 % (39.6-49.0); Lymphocytes % 16.9 % (15.3-44.8); MCV 88.3 fL (80-100); MPV 7.1 fL (7.6-11.3); RBC Red Blood Cell Count 5.03 M/uL (4.33-5.43)
[2021-11-07 05:02] LABS: Protime INR 1.14
[2021-11-07 05:14] LABS: ALT/SGPT 48 U/L (12-78); AST/SGOT 31 U/L (15-37); Albumin 3.8 g/dL (3.4-5.0); Alkaline Phosphatase 83 U/L (45-117); BUN Blood Urea Nitrogen 19 mg/dL (7-18); Bicarbonate 30 mmol/L (21-32); Bilirubin Total 0.3 mg/dL (0.2-1.0); Glomerular Filtration Rate 74 ml/min (=/>90); Glucose Level 139 mg/dL (74-106); Magnesium 1.5 mg/dL (1.8-2.4); NT PRO-BNP 11 pg/mL (<125); Potassium 4.1 mmol/L (3.5-5.1); Protein, Total 7.4 g/dL (6.4-8.2); Sodium Level 139 mmol/L (136-145); Troponin High Sensitivity 8.1 pg/mL (<58.9)
[2021-11-07 05:21] LABS: Bilirubin Direct < 0.1 mg/dL (0-0.2)
[2021-11-07] MEDS ORDERED: Magnesium Sulfate 2gm IVPB 2 G/50 ML BAG IV ONE (05:46)
[2021-11-07 07:00] VITALS: TEMP 99.3
[2021-11-07 07:29] VITALS: BP 111/65; O2SAT 95
--- NOTE | 2021-11-07 14:31 | EKG ---
Test Date: 2021-11-07 Test Time: 04:22:07 Awning Craftsman: MARIA INES MEASUREMENT RESULTS: Intervals: Rate: 84 ID: [id number] QRSD: 88 QT: 342 QTc: 404 [place]: P: 66 ID: [id number] QRS: 92 T: 53 INTERPRETIVE STATEMENTS: Normal sinus rhythm Rightward axis Borderline ECG No previous ECG available for comparison Electronically Signed On 11-07-21 14:30:18 CDT by Chris Simpson
--- NOTE | 2021-11-07 19:21 | RAD REPORT ---
EXAM DESCRIPTION: RAD - Chest Single View - 11/07/2021 4:11 am CLINICAL HISTORY: COUGH COMPARISON: None. FINDINGS: Single frontal radiograph view of the chest. Cardiomediastinal silhouette: Normal size and contour. Lungs: No consolidation, pneumothorax, or pleural effusion. Bones: No acute osseous abnormality. Upper abdomen: No abnormality identified. IMPRESSION: 1. No acute pulmonary process identified. Electronically signed by: Vega Hermosillo 11/07/2021 4:23 AM CDT Due to temporary technical issues with the PACS/Fluency reporting system, reports are being signed by the in house radiologists without review as a courtesy to insure prompt reporting. The interpreting radiologist is fully responsible for the content of the report.
== END 2021-11-07 06:45 | disposition home or self-care (01) ==
LOC: ER 03:36
DX: U07.1 COVID-19 (principal); E83.42 Hypomagnesemia; R05.9 Cough, unspecified; I10 Essential (primary) hypertension; E78.00 Pure hypercholesterolemia, unspecified; F41.8 Other specified anxiety disorders
CPT/HCPCS: 93005; 85025; 80048; 36415; 83735; 85610; 85379; 80076; 84484; 83880; 71045; 96374; 99284; J3475; J7030